=== PATIENT | female | born 2000 | race Caucasian/White ===

== ENCOUNTER 2022-04-06 19:40 | Emergency (ER) | payer MEDICAID, OTHER ==
[~2022-04-06] VITALS: Ht 154.9 cm; Wt 89.3 kg
[2022-04-06 20:01] VITALS: BP 121/77
[2022-04-06] MEDS ORDERED: TETANUS, DIPHTHERIA, PERTUSSIS VAC/PF 0.5ML (>10YR OLD) IM ONE (21:45)
[2022-04-06] MEDS ORDERED: LIDOCAINE HCL/PF 1% 10 MG/ML 5ML VIAL INFIL ONE (21:45)
[2022-04-06] MEDS ORDERED: BACITRACIN ZINC OINT UDPKT TOP ONE (21:45)
[2022-04-06] MEDS ORDERED: TOPUD MT (22:36)
== END 2022-04-06 23:20 | disposition home or self-care (01) ==
LOC: ER 19:40
DX: S61.211A Laceration without foreign body of left index finger without damage to nail, initial encounter (principal); W26.0XXA Contact with knife, initial encounter; Y93.G3 Activity, cooking and baking; Y92.030 Kitchen in apartment as the place of occurrence of the external cause
CPT/HCPCS: 12001; 90471; 90715; 99283; J3490